=== PATIENT | female | born 2000 | race Hispanic/Latino ===

== ENCOUNTER 2020-03-06 13:33 | Inpatient (IN) | payer MEDICAID, OTHER, SELFPAY ==
[2020-03-09] MEDS ORDERED: Diphenoxylate HCl/Atropine Tablet PO PRN (05:11)
[2020-03-09] MEDS ORDERED: NS / Oxytocin 40 units/1000ml 1,000 ML IV PRN (05:11)
[2020-03-09] MEDS ORDERED: Ondansetron PF 4 MG/2 ML Vial IVP PRN ×3 (05:11→17:34)
[2020-03-09] MEDS ORDERED: Carboprost 250 MCG/ML AMP IM PRN (05:11)
[2020-03-09] MEDS ORDERED: hydrALAZINE 20 MG/ML VIAL SLOW IVP PRN ×2 (05:11→17:34)
[2020-03-09] MEDS ORDERED: Methylergonovine 0.2 MG/ML VIAL IM PRN (05:11)
[2020-03-09] MEDS ORDERED: Misoprostol 200 MCG TAB PR PRN (05:11)
[2020-03-09] MEDS ORDERED: Butorphanol Tartrate 1 MG/ML VIAL SLOW IVP PRN (05:11)
[2020-03-09] MEDS ORDERED: Promethazine HCl 25 MG/ML VIAL IM PRN ×2 (05:11→08:23)
[2020-03-09] MEDS ORDERED: HYDROcodone/Acetaminophen 5/325 mg Tablet PO PRN ×3 (05:11→17:34)
[2020-03-09] MEDS ORDERED: NS w/ Oxytocin 10 units 500 ML IV SCH ×2 (05:11)
[2020-03-09] MEDS ORDERED: Ibuprofen 800 MG TAB PO PRN (05:11)
[2020-03-09] MEDS ORDERED: Lidocaine 1% (PF) 30 ML VIAL SC PRN (05:11)
[2020-03-09 05:30] VITALS: BMI 34.9
[2020-03-09] MEDS: Lactated Ringer's 1,000 ML IV SCH (05:49)
[2020-03-09 06:01] LABS: Hemoglobin 11.7 g/dL (12.0-16.0); Mean Corpuscular HGB CONC 34.2 g/dL (32.0-36.0); Mean Corpuscular Hemoglobin 29.4 pg (27.0-31.0); Mean Corpuscular Volume 85.9 fL (78.0-98.0); Platelet Count 202 thou/uL (130-400); RBC Distribution Width 14.6 % (11.5-14.5); Red Blood Cell (RBC) Count 3.97 mill/uL (4.20-5.40); White Blood Cell (WBC) Count 13.7 thou/uL (4.8-10.8)
[2020-03-09 07:01] LABS: Syphilis Antibody Nonreactive (Nonreactive); Syphilis Antibody Index 0.05 S/CO (<1.00 Non-Reactive)
[2020-03-09] MEDS ORDERED: Fentanyl 4 mcg/Bup 0.1% Cadd 100 ML ONE ×2 (07:34→14:37)
[2020-03-09 08:17] LABS: HBSAg Index 0.32 S/CO (0-0.99); Hep B Surf Ag Non-Reactive S/CO (NonReactive)
[2020-03-09] MEDS ORDERED: Naloxone HCl 0.4 mg/ml Vial IVP PRN ×2 (08:23)
[2020-03-09] MEDS ORDERED: Acetaminophen 325 MG TAB PO PRN (08:23)
[2020-03-09] MEDS ORDERED: Lactated Ringer's 500 ML IV PRN (08:23)
[2020-03-09] MEDS ORDERED: diphenhydrAMINE 50 MG/ML VIAL IVP PRN (08:23)
[2020-03-09] MEDS ORDERED: EPHEDRINE 25 MG/5 ML SYRINGE SLOW IVP PRN (08:23)
[2020-03-09] MEDS ORDERED: Fentanyl 4 mcg/Bupivacaine 0.1% Cassette 100 ML EPIDURAL SCH (08:30)
[2020-03-09] MEDS ORDERED: Communication Order-Pharmacy FS SCH (08:30)
[2020-03-09] MEDS: Misoprostol 100 MCG TAB VAG SCH ×2 (09:06→17:31)
[2020-03-09] MEDS ORDERED: Lidocaine 1% (PF) 30 ML VIAL ONE (14:19)
[2020-03-09] MEDS ORDERED: NS / Oxytocin 40 units/1000ml 1,000 ML ONE (14:19)
[2020-03-09] MEDS ORDERED: diphenhydrAMINE 25 MG CAP PO PRN (17:34)
[2020-03-09] MEDS ORDERED: Lanolin Ointment 7 GM TUBE TOP PRN (17:34)
[2020-03-09] MEDS ORDERED: Milk Of Magnesia 30 ML UDCUP PO PRN (17:34)
[2020-03-09] MEDS ORDERED: Bisacodyl 10 MG SUPP PR PRN (17:34)
[2020-03-09] MEDS ORDERED: NS / Oxytocin 40 units/1000ml 1,000 ML IV SCH (17:34)
[2020-03-09] MEDS ORDERED: Benzocaine-Menthol 82.5 ML CAN TOP PRN (17:34)
[2020-03-09] MEDS: Ibuprofen 800 MG TAB PO SCH (22:12)
[2020-03-09] MEDS: Docusate Calcium (SURFAK) 240 MG CAP PO SCH (22:13)
[2020-03-10] MEDS: Lactated Ringer's 1,000 ML IV SCH (01:55)
[2020-03-10] MEDS: Ibuprofen 800 MG TAB PO SCH ×3 (06:15→21:02)
[2020-03-10 06:32] LABS: Hemoglobin 7.6 g/dL (12.0-16.0); Mean Corpuscular HGB CONC 33.6 g/dL (32.0-36.0); Mean Corpuscular Hemoglobin 28.7 pg (27.0-31.0); Mean Corpuscular Volume 85.2 fL (78.0-98.0); Mean Platelet Volume 8.8 fL (7.4-10.4); Platelet Count 164 thou/uL (130-400); RBC Distribution Width 14.9 % (11.5-14.5); Red Blood Cell (RBC) Count 2.66 mill/uL (4.20-5.40); White Blood Cell (WBC) Count 16.6 thou/uL (4.8-10.8)
[2020-03-10] MEDS: Prenatal Vitamin 1 TAB PO SCH (08:17)
[2020-03-10] MEDS: Docusate Calcium (SURFAK) 240 MG CAP PO SCH ×2 (08:17→21:02)
[2020-03-10] MEDS: Ferrous Sulfate 325 MG TAB PO SCH ×2 (08:17→19:10)
[2020-03-10] MEDS ORDERED: Adacel (T-DAP) 0.5 ML SYRINGE IM ONE (09:00)
[2020-03-11] MEDS: Ibuprofen 800 MG TAB PO SCH ×2 (05:43→14:47)
[2020-03-11] MEDS: Docusate Calcium (SURFAK) 240 MG CAP PO SCH (07:41)
[2020-03-11] MEDS: Prenatal Vitamin 1 TAB PO SCH (07:41)
[2020-03-11] MEDS: Ferrous Sulfate 325 MG TAB PO SCH (07:41)
[2020-03-11 08:25] VITALS: BP 125/58; TEMP 98.6
== END 2020-03-11 19:40 | disposition home or self-care (01) | DRG 807 ==
LOC: EDSTATUS 13:33 → L&D 03-09 05:08 → 3SW 03-09 18:50
PROVIDERS: ADMIT Family Medicine; ATTEND Family Medicine
PROC: 10E0XZZ Delivery of Products of Conception, External Approach (ICD-10-PCS; principal; 2020-03-09)
PROC: 0KQM0ZZ Repair Perineum Muscle, Open Approach (ICD-10-PCS; 2020-03-09)
PROC: 3E033VJ Introduction of Other Hormone into Peripheral Vein, Percutaneous Approach (ICD-10-PCS; 2020-03-09)
PROC: 0W8NXZZ Division of Female Perineum, External Approach (ICD-10-PCS; 2020-03-09)
PROC: 0UQMXZZ Repair Vulva, External Approach (ICD-10-PCS; 2020-03-09)
DX: O70.1 Second degree perineal laceration during delivery (principal); Z37.0 Single live birth; Z3A.40 40 weeks gestation of pregnancy
CPT/HCPCS: 36415; 51702; 85027; 86780; 86850; 86900; 86901; 87340; J2001; J2590

== ENCOUNTER 2020-03-12 19:37 | Inpatient (IN) | payer MEDICAID, OTHER, SELFPAY ==
[2020-03-12] MEDS ORDERED: Cefepime 2 GM VIAL ONE (20:12)
[2020-03-12] MEDS ORDERED: Acetaminophen 325 MG TAB ONE (20:12)
[2020-03-12 20:29] LABS: #Eosinphils 0.1 thou/uL (0.0-0.7); #Monocytes 0.5 thou/uL (0.11-0.59); #Neutrophils 8.5 thou/uL (1.40-6.50); %Basophils 0.1 % (0.0-1.0); %Eosinophils 0.6 % (0.0-10.0); %Lymphocytes 9.7 % (21.0-51.0); %Monocytes 4.5 % (0.0-10.0); %Neutrophils 85.2 % (42.0-75.0); Hemoglobin 8.2 g/dL (12.0-16.0); Mean Corpuscular HGB CONC 33.2 g/dL (32.0-36.0); Mean Corpuscular Hemoglobin 28.5 pg (27.0-31.0); Mean Corpuscular Volume 85.9 fL (78.0-98.0); Mean Platelet Volume 7.7 fL (7.4-10.4); Platelet Count 217 thou/uL (130-400); Red Blood Cell (RBC) Count 2.88 mill/uL (4.20-5.40)
--- NOTE | 2020-03-12 20:29 | RAD ---
XR Chest 1 View Portable HISTORY: Postop fever. Chills. Vaginal delivery on 03/09/2020 COMPARISON: None FINDINGS: The heart size is normal. The lungs are well expanded without focal areas of consolidation, pneumothorax or pleural effusions. IMPRESSION: No radiographic evidence of acute cardiopulmonary process.
[2020-03-12 20:50] LABS: ALT (SGPT) 89 U/L (8-55); AST (SGOT) 180 U/L (5-34); Albumin 3.3 g/dL (3.5-5.0); Alkaline Phosphatase 139 U/L (40-110); Anion Gap 15 mmol/L (10-20); BUN (Urea Nitrogen) 6 mg/dL (7.0-18.7); Bilirubin, Total 0.2 mg/dL (0.2-1.2); Calc. Creatinine Clearance 0 mL/min (70-130); Calcium 8.4 mg/dL (7.8-10.44); Carbon Dioxide 23 mmol/L (22-29); Chloride 103 mmol/L (98-107); Estimated GFR-MDRD Greater than 90; Glucose 104 mg/dL (70-105); Potassium 3.7 mmol/L (3.5-5.1); Protein, Total 6.3 g/dL (6.0-8.3); Sodium 137 mmol/L (136-145)
[2020-03-12 21:21] LABS: Bacteria/HPF 3+ HPF (None Seen); Bilirubin Negative (Negative); Blood, Urine 3+ (Negative); Clarity Turbid (Clear); Glucose, Urine (Dipstick) Normal (Negative); Ketone, Urine Negative (Negative); Leukocyte 500 Leu/uL (Negative); Nitrite Negative (Negative); Protein, Urine (Dipstick) 20 mg/dL (Neg-Trace); RBC/HPF Greater than 50 HPF (0-3); Renal Epithelial 0-3 HPF (None Seen); Specific Gravity, Urine 1.009 (1.002-1.036); Squamous Epithelial 0-3 HPF (0-3); Urobilinogen Normal mg/dL (Less than 2); WBC/HPF Greater than 50 HPF (0-3)
--- NOTE | 2020-03-12 21:46 | ULT ---
TRANSABDOMINAL PELVIC ULTRASOUND: 03/12/20 HISTORY: Vaginal delivery two days ago with fever and concern for retained products of conception. FINDINGS: The uterus measures 18.4 x 5.4 x 8.6 cm with echogenic material in the endometrial canal in the lower uterine segment. The ovaries are not visualized due to enlarged uterus. No free fluid is seen. IMPRESSION: Findings are suspicious for retained products of conception in the lower uterine segment. POS: OFF
[2020-03-13] MEDS ORDERED: Benzocaine-Menthol 82.5 ML CAN TOP PRN (02:04)
[2020-03-13] MEDS ORDERED: Bisacodyl 10 MG SUPP PR PRN (02:04)
[2020-03-13] MEDS ORDERED: Lanolin Ointment 7 GM TUBE TOP PRN (02:04)
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
[2020-03-13] MEDS: Ibuprofen 800 MG TAB PO SCH ×3 (02:34→17:53)
[2020-03-13] MEDS: HYDROcodone/Acetaminophen 5/325 mg Tablet PO PRN ×2 (02:35→06:27)
[2020-03-13] MEDS: Sodium Chloride 0.9% 1,000 ML IV SCH ×2 (02:37→17:54)
[2020-03-13 06:13] LABS: #Lymphocytes 0.7 thou/uL (1.20-3.40); #Monocytes 0.4 thou/uL (0.11-0.59); #Neutrophils 7.5 thou/uL (1.40-6.50); %Basophils 0.1 % (0.0-1.0); %Eosinophils 0.5 % (0.0-10.0); %Lymphocytes 8.2 % (21.0-51.0); %Monocytes 4.7 % (0.0-10.0); %Neutrophils 86.5 % (42.0-75.0); Hemoglobin 7.2 g/dL (12.0-16.0); Mean Corpuscular HGB CONC 32.7 g/dL (32.0-36.0); Mean Corpuscular Hemoglobin 28.3 pg (27.0-31.0); Mean Corpuscular Volume 86.4 fL (78.0-98.0); Mean Platelet Volume 7.6 fL (7.4-10.4); Platelet Count 223 thou/uL (130-400); RBC Distribution Width 15.1 % (11.5-14.5); Red Blood Cell (RBC) Count 2.56 mill/uL (4.20-5.40); White Blood Cell (WBC) Count 8.6 thou/uL (4.8-10.8)
[2020-03-13 06:32] LABS: ALT (SGPT) 76 U/L (8-55); AST (SGOT) 127 U/L (5-34); Albumin 2.8 g/dL (3.5-5.0); Alkaline Phosphatase 121 U/L (40-110); Anion Gap 13 mmol/L (10-20); BUN (Urea Nitrogen) 6 mg/dL (7.0-18.7); Bilirubin, Total 0.2 mg/dL (0.2-1.2); Calc. Creatinine Clearance 218 mL/min (70-130); Carbon Dioxide 20 mmol/L (22-29); Chloride 110 mmol/L (98-107); Estimated GFR-MDRD Greater than 90; Globulin 2.6 g/dL (2.4-3.5); Glucose 113 mg/dL (70-105); Potassium 3.7 mmol/L (3.5-5.1); Protein, Total 5.4 g/dL (6.0-8.3); Sodium 139 mmol/L (136-145)
[2020-03-13] MEDS: cefTRIAXone\\ROCEPHIN 2 GM in Sodium Chloride 0.9% 100 ML IVPB SCH (09:36)
[2020-03-13] MEDS: Prenatal Vitamin 1 TAB PO SCH (09:36)
[2020-03-13] MEDS: Docusate Calcium (SURFAK) 240 MG CAP PO SCH ×2 (09:36→21:59)
[2020-03-13] MEDS: Ferrous Sulfate 325 MG TAB PO SCH ×2 (09:36→17:54)
[2020-03-13] MEDS ORDERED: Simethicone Chewable 80 MG TAB PO PRN (23:21)
[2020-03-14] MEDS: Ibuprofen 800 MG TAB PO SCH ×2 (03:34→12:40)
[2020-03-14] MEDS: Sodium Chloride 0.9% 1,000 ML IV SCH (05:52)
[2020-03-14] MEDS: HYDROcodone/Acetaminophen 5/325 mg Tablet PO PRN (07:30)
[2020-03-14] MEDS: Prenatal Vitamin 1 TAB PO SCH (07:32)
[2020-03-14] MEDS: Ferrous Sulfate 325 MG TAB PO SCH (07:32)
[2020-03-14] MEDS: Docusate Calcium (SURFAK) 240 MG CAP PO SCH (07:32)
[2020-03-14] MEDS: cefTRIAXone\\ROCEPHIN 2 GM in Sodium Chloride 0.9% 100 ML IVPB SCH (09:13)
[2020-03-14 12:38] VITALS: BP 118/67; TEMP 98.7
[2020-03-14] MEDS ORDERED: AMOXicillin 250 MG CAP PO SCH (13:30)
== END 2020-03-14 15:13 | disposition home or self-care (01) | DRG 776 ==
LOC: ERS 19:37 → 3SE 22:02
PROVIDERS: ADMIT Family Medicine; ATTEND Family Medicine
DX: O85 Puerperal sepsis (principal); O86.4 Pyrexia of unknown origin following delivery; O86.21 Infection of kidney following delivery; B95.2 Enterococcus as the cause of diseases classified elsewhere
CPT/HCPCS: 36415; 71045; 76856; 80053; 81003; 81015; 83605; 84145; 85025; 87040; 87077; 87086; 87186; 96361; 96365; 96366; J0692; J0696; J3490

== ENCOUNTER 2024-02-05 12:12 | Outpatient (CLI) | payer OTHER | END 2024-02-05 12:13 | disposition home or self-care (01) | LOC: BICULT 12:12 | PROVIDERS: ATTEND Advanced Practice Midwife | DX: Z34.82 Encounter for supervision of other normal pregnancy, second trimester (principal); Z3A.18 18 weeks gestation of pregnancy | CPT/HCPCS: 76805 ==